=== PATIENT | male | born 1965 | race Caucasian/White ===

== ENCOUNTER 2020-10-19 12:07 | Day surgery (SDC) | payer BC ==
[~2020-10-19] VITALS: Ht 177.8 cm; Wt 132.2 kg
[~2020-10-19 12:07] MED LIST: AMBIEN10 MG PO; AMOX875 PO; ERGO50000 PO; HYDACE5 PO
== END 2020-10-19 13:56 | disposition home or self-care (01) ==
LOC: ORSCSDS 12:07
PROVIDERS: Surgery
PROC: 0DJD8ZZ Inspection of Lower Intestinal Tract, Via Natural or Artificial Opening Endoscopic (ICD-10-PCS; principal; 2020-10-19 13:15)
DX: Z12.11 Encounter for screening for malignant neoplasm of colon (principal); G47.30 Sleep apnea, unspecified; F32.9 Major depressive disorder, single episode, unspecified; G47.33 Obstructive sleep apnea (adult) (pediatric); E66.01 Morbid (severe) obesity due to excess calories; Z68.41 Body mass index [BMI] 40.0-44.9, adult
CPT/HCPCS: J2405; J2704; J7120

== ENCOUNTER → 2022-02-07 | Outpatient (CLI) | payer BC | END | disposition home or self-care (01) | LOC: PLD 09:18 → LAB SHORT 09:18 | DX: L72.0 Epidermal cyst (principal) | CPT/HCPCS: 88304 ==

== ENCOUNTER 2024-03-17 05:04 | Observation (INO) | payer BC ==
[2024-03-17] VITALS (8 sets, daily range): BP systolic 136–173; BP diastolic 75–97
[~2024-03-17] VITALS: Ht 177.8 cm; Wt 131.7 kg
[2024-03-17] MEDS ORDERED: HYDCHL25 PO (05:49)
[2024-03-17] MEDS ORDERED: ATORVASTATIN CA20 MG PO (05:49)
[2024-03-17 05:58] LABS: BASOPHILS ABSOLUTE AUTO 0.03 K/mm3 (0.00-0.23); BASOPHILS PERCENT AUTO 0 % (0-2); EOSINOPHILS ABSOLUTE AUTO 0.01 K/mm3 (0.00-0.68); EOSINOPHILS PERCENT AUTO 0 % (0-6); Hematocrit 42.2 % (37.0-53.0); Hemoglobin 14.9 g/dL (13.5-17.5); IMMATURE GRAN ABSOLUTE AUTO 0.05 K/mm3 (0.00-0.10); IMMATURE GRAN PERCENT AUTO 0 % (0-1); LYMPHOCYTES ABSOLUTE AUTO 1.01 K/mm3 (0.84-5.20); LYMPHOCYTES PERCENT AUTO 9 % (21-46); MONOCYTES ABSOLUTE AUTO 0.51 K/mm3 (0.16-1.47); MONOCYTES PERCENT AUTO 4 % (4-13); Mean Corpuscular HGB 30.8 pg (26.0-34.0); Mean Corpuscular HGB Conc 35.3 g/dL (31.5-36.5); Mean Corpuscular Volume 87 fL (80-100); NEUTROPHILS ABSOLUTE AUTO 10.31 K/mm3 (1.96-9.15); NEUTROPHILS PERCENT AUTO 86 % (41-73); Platelet Count 293 K/mm3 (150-400); RDW Coefficient Variation 12.1 % (11.7-14.2); RDW Standard Deviation 38.8 fL (35.1-46.3); Red Blood Cell Count 4.83 M/mm3 (4.30-5.90); White Blood Cell Count 11.92 K/mm3 (4.00-11.30)
[2024-03-17 06:21] LABS: Albumin/Globulin Ratio 1.1 (0.8-1.8); Bilirubin, Total 0.6 mg/dL (0.1-1.0); Bun/Creatinine Ratio 16.2 (12.0-20.0); Calcium, Blood 10.2 mg/dL (8.5-10.1); Creatinine, Blood 1.17 mg/dL (0.60-1.20); Globulin, Blood 3.5 g/dL (2.2-4.0); Potassium, Blood 3.4 mmol/L (3.5-5.5); Total Protein, Blood 7.5 g/dL (6.4-8.2)
[2024-03-17] MEDS ORDERED: Nitroglycerin/D5W 250 ML IV ONE (06:45)
[2024-03-17] MEDS ORDERED: Aspirin 325 MG Tab PO ONE (06:45)
[2024-03-17] MEDS ORDERED: Nitroglycerin 0.4 MG SUBL SL ONE (06:45)
[2024-03-17] MEDS ORDERED: Ondansetron HCl 2 MG / ML 2ML Vial ONE (06:48)
[2024-03-17] MEDS ORDERED: Ondansetron HCl 2 MG / ML 2ML Vial IV ONE (06:55)
[2024-03-17] MEDS ORDERED: Morphine Sulfate 4 MG/1 ML Injection IV ONE (07:10)
[2024-03-17 07:21] LABS: Anti-Xa UFH, PHA Monitoring <0.10 IU/mL; International Normalized Ratio 0.98; Prothrombin Time Results 10.5 Sec (9.7-11.5)
[2024-03-17] MEDS ORDERED: Heparin Sodium,Porcine/0.5 NS 500 ML IV SCH (07:30)
[2024-03-17] MEDS ORDERED: Heparin Sodium 5000 Units/ML 1ML MDV IV ONE (07:30)
[2024-03-17] MEDS ORDERED: FentaNYL Citrate 50 MCG/ML 2 ML Injection IV ONE (08:20)
[2024-03-17] MEDS ORDERED: FLU VACC TS2024-25(6MOS UP)/PF 45 MCG/0.5 ML SYRINGE IM SCH (10:10)
[2024-03-17] MEDS ORDERED: Mag Hydrox/Al Hydrox/Simeth 18 ML,Lidocaine 2% Viscous Soln 9 ML,Atropine/Scopalam/Hyos... PO ONE (10:15)
[2024-03-17] MEDS ORDERED: Pantoprazole Sodium 40 MG Injection IV ONE (11:00)
[2024-03-17] MEDS ORDERED: HYDROmorphone HCl/Pf 1MG SYR IV PRN (12:00)
--- NOTE | 2024-03-17 12:41 | NUR ---
PATIENT ARRIVED TO UNIT AND WAS SETTLED IN AND ORIENTED TO THE UNIT. VITAL SIGNS STABLE AND PATIENT STATED HIS ABDOMINAL PAIN WAS RATED AT A 9. IN ROOM AND PATIENT SITTING IN BED WITH CALL LIGHT WITHIN REACH AND BED AT LOWEST POSITION.
[2024-03-17] MEDS ORDERED: HydroCHLOROthiazide 25 mg Tab PO SCH (14:40)
[2024-03-17 15:39] LABS: Magnesium, Blood 1.8 mg/dL (1.6-2.4); Thyroid Stimulating Hormone 2.13 uIU/mL (0.360-4.800)
--- NOTE | 2024-03-17 16:50 | NUR ---
END OF SHIFT SUMMARY: PT A&OX4 AND ACTIVE IN HIS CARE. ON TELE SHOWING SINUS RYTHM WITH JAIR IN 80'S. SATTING >92% ON ROOM AIR. BLOOD PRESSURE ELEVATED BUT HAS A RECENT NEW DIAGNOSIS OF HYPERTENSION. HOME MEDICATION HYDROCLORITHIAZIDE WAS ADDED TO MEDICATION LIST AND WAS GIVEN TODAY. ABDOMINAL CT WAS DONE IN THE ER AND RESULTS ARE IN THE CHART. HEPARIN IS RUNNING AT 15U/KG AND VERIFIED BY 2ND RN UPON ARRIVAL. ORIGINAL TROP WAS 95 AND REDRAWN WAS 94, IS NOT TRENDING ANY MORE. DIET ORDERED AND WILL ADVANCE TOLERATED AND PATIENT NOTIFIED. WILL NOTIFY TO ONCOMING FUNCTIONAL DIRECTOR RN.
[2024-03-17] MEDS ORDERED: Acetaminophen 325 MG TABLET PO PRN (20:45)
[2024-03-17] MEDS ORDERED: OxyCODONE HCL 5 MG TAB PO PRN (20:45)
--- NOTE | 2024-03-17 21:44 | NUR ---
ASSUMPTION OF CARE: RECEIVED REPORT FROM TEAGAN HIDALGO AT 1900. PT ALERT AND ORIENTED. PLEASANT AND COOPERATIVE WITH CARE. PT RESTING COMFORTABLY IN THE BED UPON ASSESSMENT. PT HAD C/O MILD CHEST DISCOMFORT BUT STATED HE FELT IT WAS MORE GI RELATED. MEDICATED WITH PRN PAIN MEDICATION AND HAD SUBSTANTIAL RELIEF. PT ABLE TO AMBULATE AROUND THE UNIT AND IN ROOM INDEPENDENTLY. RIVETER PORTABLE MACHINE IN PLACE, SR WITH HR 80'S. SBP 150'S. CURRENTLY ON RA WITH SPO2 MID TO HIGH 90'S. DENIES SOB. VOIDING YELLOW URINE WITH NO ISSUES. HEPARIN GTT AT 15 UNITS/KG/HR. PIVS TO RAC/LAC INTACT AND PATENT. DENIES N/V. BED LOW AND LOCKED, CALL LIGHT IN REACH. AFEBRILE.
[2024-03-18] VITALS (7 sets, daily range): BP systolic 119–152; BP diastolic 76–97
[2024-03-18 02:15] LABS: BASOPHILS ABSOLUTE AUTO 0.02 K/mm3 (0.00-0.23); BASOPHILS PERCENT AUTO 0 % (0-2); EOSINOPHILS ABSOLUTE AUTO 0.02 K/mm3 (0.00-0.68); EOSINOPHILS PERCENT AUTO 0 % (0-6); Hematocrit 39.3 % (37.0-53.0); Hemoglobin 13.8 g/dL (13.5-17.5); IMMATURE GRAN ABSOLUTE AUTO 0.04 K/mm3 (0.00-0.10); IMMATURE GRAN PERCENT AUTO 0 % (0-1); LYMPHOCYTES ABSOLUTE AUTO 1.38 K/mm3 (0.84-5.20); LYMPHOCYTES PERCENT AUTO 14 % (21-46); MONOCYTES ABSOLUTE AUTO 0.79 K/mm3 (0.16-1.47); MONOCYTES PERCENT AUTO 8 % (4-13); Mean Corpuscular HGB 30.8 pg (26.0-34.0); Mean Corpuscular HGB Conc 35.1 g/dL (31.5-36.5); Mean Corpuscular Volume 88 fL (80-100); Mean Platelet Volume 8.7 fL (9.1-12.4); NEUTROPHILS ABSOLUTE AUTO 7.99 K/mm3 (1.96-9.15); NEUTROPHILS PERCENT AUTO 78 % (41-73); Platelet Count 252 K/mm3 (150-400); RDW Coefficient Variation 12.5 % (11.7-14.2); RDW Standard Deviation 40.3 fL (35.1-46.3); Red Blood Cell Count 4.48 M/mm3 (4.30-5.90); White Blood Cell Count 10.24 K/mm3 (4.00-11.30)
[2024-03-18 02:32] LABS: Bun/Creatinine Ratio 13.9 (12.0-20.0); Calcium, Blood 9.1 mg/dL (8.5-10.1); Creatinine, Blood 1.01 mg/dL (0.60-1.20); Potassium, Blood 3.4 mmol/L (3.5-5.5)
[2024-03-18] MEDS ORDERED: Dose Adjust by Pharmacy XX STA (02:58)
[2024-03-18] MEDS ORDERED: Potassium Chloride 20 MEQ TabCR PO ONE (04:15)
--- NOTE | 2024-03-18 06:05 | NUR ---
SHIFT SUMMARY: NO ACUTE CHANGES OVERNIGHT. PT ABLE TO REST COMFORTABLY T/O THE NIGHT. NO C/O PAIN THIS MORNING. CONTINUES TO BE ALERT AND ORIENTED. AMBULATING IN ROOM WITH NO ASSISTANCE. NO CHEST PAIN/PRESSURE. SBP 150'S. HR 60'S. CONTINUES ON RA WITH SPO2 HIGH 90'S. NO C/O SOB. VOIDING YELLOW URINE. HEPARIN DRIP UNCHANGED THIS SHIFT, INFUSING AT 15 UNITS/KG/HR. PIVS INTACT. NPO SINCE MIDNIGHT. BED LOW AND LOCKED. CALL LIGHT IN REACH.
[2024-03-18] MEDS ORDERED: Pantoprazole Sodium 40 MG Injection IV SCH (09:00)
[2024-03-18] MEDS ORDERED: HydroCHLOROthiazide 25 mg Tab PO SCH (09:00)
[2024-03-18] MEDS ORDERED: Atorvastatin 40 MG Tab PO SCH (09:00)
--- NOTE | 2024-03-18 11:01 | NUR ---
pt. is awake in bed when he welcomes my visit. Pt. is pleasant. Facilitated a life review and considered matters of an and belief. Listened with interest and empathy. Pt. displayed evidence of confidence as he approached the issues of his health. Normalized the Pt. Expereince. Prayed with Pt. Pt. vebralized gratitude for the spiritual care visit.
[2024-03-18] MEDS ORDERED: Potassium Chloride 10 Meq Tablet SA PO ONE (15:30)
--- NOTE | 2024-03-18 18:06 | NUR ---
SHIFT SUMMARY, ASSUMED CARE AT 0700. A/A/OX4, INDEPENDANT IN ROOM. FIRST PART OF STRESS TEST COMPLETED TODAY, WILL PLAN FOR 2ND PART TOMORROW. HEPARIN INFUSING AT 15UNITS/KG, DENIES CP OR ABD PAIN, EATING WITHOUT DIFFICULTY, DENIES NAUSEA. VSS, NO ACUTE CHANGES DURING SHIFT.
--- NOTE | 2024-03-18 19:30 | NUR ---
ASSESSMENT/ASSUMED CARE PT AWAKE SITTING UP IN THE CHAIR WATCHING TV. DENIES PAIN OR DISCOMFORT. STATES,"I'M READY TO GO HOME". LUNGS CLEAR ON ROOMAIR. RESP EVEN AND NONLABORED. DENIES SOB OR COUGH. HOME CPAP AT BEDSIDE WILL HAVE RT ASSESS. HEART RATE REGULAR. BP STABLE. NO EDEMA. BT+ ABD SOFT AND NONTENDER. DENIES N/V. IV 18G TO RIGHT AND LEFT AC. BOTH SITES CLEAR WITH DRSG INTACT. RIGHT AC WITH HEPARIN GTT AT 15 UNITS/KG/HR. PT UP AD JACKELYN IN ROOM. NPO AFTER MIDNIGHT FOR STRESS TEST IN AM
--- NOTE | 2024-03-18 21:07 | NUR ---
PT UP AMB IN HALLS WITH IV PUMP
[2024-03-19 03:29] VITALS: BP 124/74
[2024-03-19 03:40] LABS: Hematocrit 38.3 % (37.0-53.0); Hemoglobin 13.4 g/dL (13.5-17.5); Mean Platelet Volume 8.8 fL (9.1-12.4); Platelet Count 222 K/mm3 (150-400)
[2024-03-19 04:03] LABS: Bun/Creatinine Ratio 14.8 (12.0-20.0); Calcium, Blood 8.9 mg/dL (8.5-10.1); Creatinine, Blood 1.15 mg/dL (0.60-1.20); Potassium, Blood 3.5 mmol/L (3.5-5.5)
[2024-03-19] MEDS ORDERED: Clarify Drug Order XX ONE (04:20)
--- NOTE | 2024-03-19 05:50 | NUR ---
SHIFT SUMMARY PT SLEPT DURING THE NIGHT WITH HOME CPAP ON. NPO SINCE MIDNIGHT FOR STRESS TEST THIS AM. VSS. DENIES PAIN OR DISCOMFORT. POSSIBLE HOME TODAY AFTER STRESS TEST. HEPARIN TO CONT AT SAME RATE 15 UNITS/KG/HR. REPORT TO ON COMING NURSE
[2024-03-19 07:37] VITALS: BP 125/82
--- NOTE | 2024-03-19 09:03 | NUR ---
am note this rn assumed care at 0700. vital signs stable. tele sinus rhythm 60-70s. patient alert and oriented x4. neuro is intact. patient denies pain, chest pain/pressure, or shortness of breath. patient is independent in the room and in adls. see shift assessment for further detials. heparin drip infusing per emar. npo for stress test this morning. plan of care is up to date at this time.
[2024-03-19] MEDS ORDERED: Aminophylline 250MG / 10ML 10 ML Vial ONE (09:29)
[2024-03-19] MEDS ORDERED: Regadenoson 0.4 MG/5 ML SYRINGE ONE (09:29)
--- NOTE | 2024-03-19 10:25 | NUR ---
update stress test in progress. md morris in to see patient this morning. heparin disconintued.
[2024-03-19 11:19] VITALS: BP 143/85
[2024-03-19] MEDS ORDERED: OMEP20ER PO (13:34)
--- NOTE | 2024-03-19 13:49 | NUR ---
discharge this rn went over discharge education with the patient, medications, and follow up appointment. patient verbalized understanding. patient spoke with md morris upon patient request before discharge. md morris currently in the room and discussing results of the stress test. patient belongings gathered. awaiting patient ride.
== END 2024-03-19 14:50 | disposition home or self-care (01) ==
LOC: ER 05:04 → ERHOLD 05:05 → PCU 05:05
PROVIDERS: Emergency Medicine; Student in an Organized Health Care Education/Training Program; ADMIT Family Medicine
DX: I21.4 Non-ST elevation (NSTEMI) myocardial infarction (principal); I11.9 Hypertensive heart disease without heart failure; K44.9 Diaphragmatic hernia without obstruction or gangrene; E78.5 Hyperlipidemia, unspecified; I77.819 Aortic ectasia, unspecified site; K80.20 Calculus of gallbladder without cholecystitis without obstruction; N28.1 Cyst of kidney, acquired; M62.08 Separation of muscle (nontraumatic), other site; Z79.899 Other long term (current) drug therapy; Z88.2 Allergy status to sulfonamides
CPT/HCPCS: 36415; 71045; 74177; 78452; 80048; 80053; 83690; 83735; 84443; 84484; 85014; 85018; 85025; 85049; 85520; 85610; 85730; 93005; 93010; 93017; 93306; 94762; 96365; 96366; 96367; 96375; 96376; 99285-25; A9270; A9500; G0378; J0280; J1170; J1644; J2270; J2405; J2470; J2785; J3010; Q9967